=== PATIENT | female | born 1990 | race Hispanic/Latino ===

== ENCOUNTER 2022-09-14 02:03 | Emergency (ER) | payer OTHER, SELFPAY | END 2022-09-14 03:40 | LOC: NAV ERS 02:03 | DX: R00.0 Tachycardia, unspecified (principal); I10 Essential (primary) hypertension; E03.9 Hypothyroidism, unspecified; Z79.899 Other long term (current) drug therapy | CPT/HCPCS: 70450; 72125 ==